=== PATIENT | male | born 2000 | race African-American/Black ===

== ENCOUNTER 2024-01-11 15:01 | Emergency (ER) | payer SELFPAY ==
--- NOTE | ~2024-01-11 | XR_ITS ---
EXAMINATION: XR CHEST CLINICAL INFORMATION: Chest pain COMPARISON: None available. TECHNIQUE: 2 views of the chest were obtained. FINDINGS: No significant abnormality is noted involving the heart, lungs, mediastinum, bony thorax or soft tissues. XR/XR chest 2V IMPRESSION: Unremarkable examination.
--- NOTE | 2024-01-11 15:04 | ECG_ITS ---
Test Reason : CP Blood Pressure : / mmHG Vent. Rate : 090 BPM Atrial Rate : 090 BPM P-R Int : 140 ms QRS Dur : 082 ms QT Int : 338 ms P-R-T Axes : 069 077 035 degrees QTc Int : 413 ms Normal sinus rhythm Normal ECG No previous ECGs available Referred By: Generic ED Physician Electronically Signed By:KATELYNN MCCRACKEN MD
[2024-01-11 15:33] VITALS: BP 129/78; PULSE 89; RESP 16; TEMP 36.7; O2SAT 98; BMI 22.7
--- NOTE | 2024-01-11 15:36 | ED.CHESTPAIN ---
HPI - Chest Pain General Chief Complaint: Chest Pain Stated Complaint: chest pain Time Seen by Provider: 01/11/24 18:34 Source: patient Mode of arrival: ambulatory Limitations: no limitations History of Present Illness ED Provider: Brigid Hernandez PA-C HPI narrative: 23-year-old male with history of chest pain presents to the ER for evaluation of intermittent central, nonradiating, sharp sternal chest pains that started 4 days ago. He states the pains come and go and he has history of similar episodes in the past. He has seen a shipping room supervisor in [place] with unremarkable workup. He has not on any cardiac medications. He states he was at training today when the pain recurred. He was doing pull-ups. It came and went. As he was running 3 miles he developed worsening pain in the central chest. It is currently improved, currently a 2/10. No associated dizziness, nausea, shortness of breath. MD complaint: chest pain Onset (ago): day(s) (4) Timing of current episode: episodic Prior episodes: Yes Onset: during exertion Pain location: substernal Pain radiation: none Severity: severe Quality: sharp Relieving factors: rest Exacerbating factors: exertion Treatment prior to arrival: none Risk Factors Coronary artery disease risk factors: none Thoracic aortic dissection risk factors: none Related Data Allergies Allergy/AdvReac Type Severity Reaction Status Date / Time No Known Allergies Allergy Verified 01/11/24 15:33 Review of Systems Review of Systems: Yes all other systems are reviewed and are negative PMFSH Social History Social History Smoked in Last 30 Days: No Use of substances other than those prescribed or required for medical reasons: No Advance Directives: No Advance Directives Information Provided: No Do you have a plan to hurt others: No Plan Physical Exam Vital Signs: Vital Signs: Last Vital Signs Temp 98 F 01/11/24 20:07 Pulse 76 01/11/24 20:07 Resp 18 01/11/24 20:07 BP 126/80 01/11/24 20:07 Pulse Ox 99 01/11/24 20:07 O2 Del Method Room Air 01/11/24 20:07 BMI result Body Mass Index 22.7 Appearance: Alert. Oriented X3. No acute distress. Head: normocephalic, atraumatic. Eyes: Pupils equal, round and reactive to light. ENT: Pharynx normal. No tonsillar swelling or exudate. Neck: Normal inspection. Neck supple. CVS: Normal heart rate and rhythm. Pulses normal. Respiratory: No respiratory distress. Breath sounds normal. Abdomen: Soft and nontender. +BS x4 Skin: Skin warm and dry. Normal skin color. Normal skin turgor. No rashes. Extremities: No lower extremity edema. No joint swelling. NEGATIVE HOMANS SIGN Neuro/psych: Oriented X 3. No motor deficit. No sensory deficit. CN II-XII intact. Normal speech and cognition. Course Course Course Narrative: This is a Rapid Medical Examination (RME) performed by Brigid Hernandez PA-C in triage. Full HPI, ROS, assessment and treatment plan per primary provider in the Main ED. 23 yo male presents to the ER for evaluation of sharp, intermittent, non-radiating chest pains for the last 3 days, worse today during training. started when he was doing pull ups, went away, and came back when he was running. associated SOB, dizziness, nausea. hx similar episodes and has seen cardiology in the past with a negative work up. awake, alert, no distress w/ RRR, no murmur. lungs CTAB. no peripheral edema. VSS. PERC negative Plan: EKG, CXR, labs Medical Decision Making Medical Decision Making [facility] Narrative: 23-year-old otherwise healthy male with history of intermittent chest pain presents to the ER for evaluation of 4 day history of intermittent chest pains. Today was worse with exertion. It was nonradiating and sharp. Low suspicion for ACS. He has had cardiac workup in the past that was unremarkable. He has no cardiac risk factors. He is PERC negative. His vital signs are stable. His EKG is unremarkable, no ischemic changes. He did have mild elevation of his troponin which was repeated and trended downward. At this time comfortable discharge home with patient to follow up with his outpatient shipping room supervisor and primary care doctor. Patient agrees with plan. Differential Diagnosis Differential Diagnoses: The differential diagnosis associated with the presentation includes Costochondritis, anxiety, unstable angina, pneumothorax Lab Data [facility] Lab Attestation statement: I reviewed the patient's lab results. NORMAL CBC, NORMAL RENAL FUNCTION, MILD ELEVATION OF TROPONIN WHICH IS FLAT UPON REPEAT 01/11/24 15:56 01/11/24 15:56 Labs: Lab Results 06/08/24 06/08/24 Range/Units 15:56 19:00 WBC 9.5 (4.8-10.8) X10*3/uL RBC 4.93 (4.60-5.80) X10*6/uL Hgb 14.7 (14.0-18.0) g/dl Hct 43.8 (42.0-52.0) % MCV 88.8 (80.0-98.0) fL MCH 29.8 (27.0-33.0) pg MCHC 33.6 (31.0-36.0) g/dl RDW 12.7 (11.0-16.0) % Plt Count 194 (160-400) X10*3/uL MPV 10.3 (9.4-12.4) fL Immature Gran % (Auto) 0.2 (0.0-0.4) % Neut % (Auto) 59.5 (45-73) % Lymph % (Auto) 25.8 (20-40) % [place] % (Auto) 12.9 H (2-11) % Eos % (Auto) 1.3 (0-4) % Baso % (Auto) 0.3 (0-2) % Lymph # (Auto) 2.4 (1.2-4.9) X10*3/uL [place] # (Auto) 1.2 (0.1-1.2) X10*3/uL Eos # (Auto) 0.1 (0.0-0.4) X10*3/uL Baso # (Auto) 0.0 (0.0-0.2) X10*3/uL Abs Immat Gran (auto) 0.02 (0.00-0.03) X10*3/uL Absolute Neuts (auto) 5.6 (2.0-8.3) x10*3/uL Absolute Nucleated RBC 0.000 (0.0-0.012) X10*3/uL Nucleated RBC % (auto) 0.0 (0.0-0.2) /100WBC Sodium 144 (135-145) mmol/L Potassium 4.2 (3.3-5.1) mmol/L Chloride 111 H (96-108) mmol/L Carbon Dioxide 25 (22-29) mmol/L Anion Gap 12 (12-20) BUN 12 (9-16) mg/dL Creatinine 1.12 (0.5-1.4) mg/dL Estim Creat Clear Calc 120.7 Estimated GFR > 60 Random Glucose 89 (60-115) mg/dL Calcium 9.7 (8.4-10.2) mg/dL Magnesium 2.0 (1.6-2.6) mg/dL Total Bilirubin 0.7 (0.0-1.0) mg/dL Direct Bilirubin 0.2 (0.0-0.5) mg/dL AST 43 H (5-37) U/L ALT 48 H (0-40) U/L Alkaline Phosphatase 145 H (39-117) U/L Troponin I High Sens 27.1 21.4 (<3.5-35.0) ng/L Total Protein 7.5 (6.5-8.0) g/dL Albumin 4.1 (3.5-5.0) g/dL Independent Interpretation I performed an independent interpretation of an: EKG and Plain X-Ray Interpretation: Chest x-ray with clear lungs, no pneumothorax or pneumonia EKG with Normal sinus rhythm, ventricular rate 90 beats per minute, normal OH interval, normal QTC, no ST segment elevations or depressions Radiology Impression Discussion of test interpretation with radiology: I have reviewed the radiologist's reading. Radiologist Impression: EXAMINATION: XR CHEST CLINICAL INFORMATION: Chest pain COMPARISON: None available. TECHNIQUE: 2 views of the chest were obtained. FINDINGS: No significant abnormality is noted involving the heart, lungs, mediastinum, bony thorax or soft tissues. XR/XR chest 2V IMPRESSION: Unremarkable examination. Prescription Management I considered prescription management with: Pain Medication Discharge Plan Discharge Clinical Impression: Atypical chest pain Patient Disposition: Home, Self-Care Instructions: Chest Pain (ED) Additional Instructions: your ekg was normal your heart enzyme was very mildly elevated and then trended downward. this is reassuring recommend following up with your shipping room supervisor and your primary care doctor. If you develop new or worsening symptoms call 911 or come back to the ER for further evaluation. Stand Alone Forms: Work/School Release Interventions: ED Discharge Assessment Last Done: 01/11/24 20:07 Discharge Date/Time: 01/11/24 20:07 Print Language: Sami
[2024-01-11 16:01] LABS: Basophils Percent Auto 0.3 % (0-2); Eosinophils Absolute Auto 0.1 X10*3/uL (0.0-0.4); Eosinophils Percent Auto 1.3 % (0-4); Hematocrit 43.8 % (42.0-52.0); Hemoglobin 14.7 g/dl (14.0-18.0); Imm Gran Abs Auto 0.02 X10*3/uL (0.00-0.03); Imm Gran Pct Auto 0.2 % (0.0-0.4); Lymphocytes Absolute Auto 2.4 X10*3/uL (1.2-4.9); Lymphocytes Percent Auto 25.8 % (20-40); MANUAL DIFF FLAG NO; Mean Corpuscular HGB Conc 33.6 g/dl (31.0-36.0); Mean Corpuscular Hemoglobin 29.8 pg (27.0-33.0); Mean Corpuscular Volume 88.8 fL (80.0-98.0); Mean Platelet Volume 10.3 fL (9.4-12.4); Monocytes Absolute Auto 1.2 X10*3/uL (0.1-1.2); Monocytes Percent Auto 12.9 % (2-11); Neutrophils Absolute Auto 5.6 x10*3/uL (2.0-8.3); Neutrophils Percent Auto 59.5 % (45-73); Platelet Count 194 X10*3/uL (160-400); Red Blood Count 4.93 X10*6/uL (4.60-5.80); Red Cell Distribution Width 12.7 % (11.0-16.0); White Blood Count 9.5 X10*3/uL (4.8-10.8)
[2024-01-11 16:15] LABS: Alanine Aminotransferase 48 U/L (0-40); Albumin Level 4.1 g/dL (3.5-5.0); Alkaline Phosphatase 145 U/L (39-117); Anion Gap 12 (12-20); Aspartate Amino Transferase 43 U/L (5-37); Bilirubin Direct 0.2 mg/dL (0.0-0.5); Bilirubin Total 0.7 mg/dL (0.0-1.0); Blood Urea Nitrogen 12 mg/dL (9-16); Calcium 9.7 mg/dL (8.4-10.2); Carbon Dioxide 25 mmol/L (22-29); Chloride 111 mmol/L (96-108); Creatinine Clr Calc Pharmacy 120.7; Estimated Glomerular Filt Rate > 60; Glucose Random 89 mg/dL (60-115); Potassium 4.2 mmol/L (3.3-5.1); Sodium 144 mmol/L (135-145); Total Protein 7.5 g/dL (6.5-8.0)
[2024-01-11 16:23] LABS: Troponin-I High Sensitivity 27.1 ng/L (<3.5-35.0)
[2024-01-11 18:52] VITALS: BP 128/79; PULSE 69; RESP 18; TEMP 36.7; O2SAT 99
[2024-01-11 19:27] LABS: Troponin-I High Sensitivity 21.4 ng/L (<3.5-35.0)
[2024-01-11 19:54] VITALS: BP 126/80; PULSE 76; RESP 18; TEMP 36.6; O2SAT 99
[2024-01-11 20:06] VITALS: BP 126/80; PULSE 76; RESP 18; TEMP 36.6; O2SAT 99
[2024-01-11 20:07] VITALS: BP 126/80; PULSE 76; RESP 18; TEMP 36.6; O2SAT 99
== END 2024-01-11 20:07 | disposition home or self-care (01) ==
PROVIDERS: Physician Assistant; Emergency Provider Student in an Organized Health Care Education/Training Program
DX: R07.89 Other chest pain (principal)
CPT/HCPCS: 36415; 71046; 80048; 80076; 83735; 84484; 85025; 93005; 99283; 99284

== ENCOUNTER → 2024-01-11 15:04 | Outpatient (BNV) | payer SELFPAY | PROVIDERS: Emergency Provider Student in an Organized Health Care Education/Training Program; Visit Provider Internal Medicine Cardiovascular Disease | DX: R07.9 Chest pain, unspecified (principal) | CPT/HCPCS: 93010 ==